=== PATIENT | female | born 1955 | race African-American/Black ===

== ENCOUNTER 2020-08-15 10:23 | Emergency (ER) | payer OTHER, SELFPAY ==
[2020-08-15 10:43] VITALS: BP 174/70; PULSE 94; RESP 18; TEMP 36.7; O2SAT 100
--- NOTE | 2020-08-15 11:12 | ED.GENADULT ---
HPI - General Adult General Chief complaint: Unspecified Stated complaint: other Time Seen by Provider: 08/15/20 11:10 Source: patient Mode of arrival: ambulatory Limitations: no limitations History of Present Illness HPI narrative: Khadra Anna is a 65 yo female following with a PMH of bilateral knee pain due to vagus foot position, HTN, high cholesterol, bladder leakage, seasonal allergies, comes to express care with left shoulder upper arm pain and left axilla pain from walking onset 2 weeks ago Consistency: progressively worsening Severity: moderate Pain scale (0-10):6 Exacerb yes ating factors: Walking with Rollator Relieving factors: None I was in [place] to and replacement ring and then 3 years times onset (ago): week(s) Consistency: progressively worsening Severity: moderate Pain scale (0-10):6 Exacerbating factors: use of walker Relieving factors: none Related Data Home Medications Medication Instructions Recorded Confirmed albuterol sulfate 1 inh INHALATION QID 08/15/20 08/15/20 amlodipine [Norvasc] 10 mg PO DAILY 08/15/20 08/15/20 atorvastatin [Lipitor] 10 mg PO DAILY 08/15/20 08/15/20 ibuprofen [IBU] 800 mg PO DAILY 08/15/20 08/15/20 metformin [Glucophage] 500 mg PO BID 08/15/20 08/15/20 metoprolol succinate [Toprol XL] 25 mg PO DAILY 08/15/20 08/15/20 montelukast [Singulair] 10 mg PO DAILY 08/15/20 08/15/20 omeprazole magnesium [Prilosec OTC] 20 mg PO DAILY 08/15/20 08/15/20 oxybutynin chloride [Ditropan XL] 5 mg PO DAILY 08/15/20 08/15/20 Allergies Allergy/AdvReac Type Severity Reaction Status Date / Time No Known Allergies Allergy Verified 08/15/20 10:52 Review of Systems Review of Systems: Narrative: CONSTITUTIONAL: Denies fever, chills, sweats. EYES: Denies visual changes, redness, discharge. ENT: Denies rhinorrhea, congestion, sore throat, otalgia. CARDIOVASCULAR: Denies chest pain, palpitations, edema. RESPIRATORY: Denies dyspnea, wheezing, cough GASTROINTESTINAL: Denies abdominal pain, nausea, vomiting, diarrhea. GENITOURINARY: Denies dysuria, hematuria, abnormal discharge SKIN: Denies rash or itching. NEUROLOGIC: Denies numbness, or focal weakness. PSYCHIATRIC: Denies anxiety or depression. Left shoulder and axilla pain PMFSH Past Medical History Medical History Back pain Diabetes GERD (gastroesophageal reflux disease) HTN (hypertension) Family History Family History Other Heart disease Hypertension Social History Social History Smoking status: Former smoker Alcohol intake: current Gender identity (if verbalized by the patient): Female Comments At time of signature, I agree with nursing past medical, surgical, social and family history. There is no relevant family history pertinent to the presenting complaint. Exam Narrative: Exam Narrative: GENERAL: This is a well-nourished, well-developed patient, in mild distress. HEAD: normocephalic, atraumatic. EYES:. Sclera clear/white. Vision is grossly intact. EARS: External ears normal, Hearing grossly intact. NOSE: External nose normal without nasal discharge, nares without redness, no rhinorrhea. THROAT: Mucous membranes moist, NECK: Neck supple, CARDIOVASCULAR: Regular rate and rhythm without murmurs, gallops, or rubs. RESPIRATORY: Clear to auscultation. Breath sounds equal bilaterally. No wheezes, rales, or rhonchi. GASTROINTESTINAL: Abdomen soft, SKIN: warm, intact with no suspicious lesions or rash, good texture and turgor. NEURO: awake, alert, and oriented to person, place and time. There were no obvious focal neurologic abnormalities. Steady gait EXTREMITIES: Normal range of motion. Able to move left arm in all directions but with pain overhead and greater than 90 degrees to the side. Bilateral equal upper extremity strength. Tender over rotator cuff
== END 2020-08-15 11:25 | disposition home or self-care (01) ==
PROVIDERS: Emergency Provider Nurse Practitioner; PCP Family Medicine
DX: S46.912A Strain of unspecified muscle, fascia and tendon at shoulder and upper arm level, left arm, initial encounter (principal); X58.XXXA Exposure to other specified factors, initial encounter; I10 Essential (primary) hypertension; E78.00 Pure hypercholesterolemia, unspecified; E11.9 Type 2 diabetes mellitus without complications; K21.9 Gastro-esophageal reflux disease without esophagitis; Z87.891 Personal history of nicotine dependence
CPT/HCPCS: 99203; G0463